=== PATIENT | female | born 1995 | race Caucasian/White ===

== ENCOUNTER 2018-06-02 20:41 | Emergency (ER) | payer OTHER ==
--- NOTE | 2018-06-03 01:02 | ER Document Report ---
ED General - General Chief Complaint: Leg Pain Stated Complaint: CALF PAIN Time Seen by Provider: 06/03/18 01:00 Primary Care Provider: HERBIE GRAHAM MD [ACTIVE STAFF] - Follow up in 3-5 days Notes: Patient is a 22-year-old female that is , approximately 32 weeks gravid that presents to the emergency department for chief complaint of right calf pain. Patient states that she started developing this pain yesterday, after a trip where she drove 5 hours, she was a passenger though, the pain as a sharp pain in the right calf, cramping in nature, she thought this was a "charley horse" but it continued and seem to be worse with walking and continued throughout today and was seen to be worse so she called her TECHNICAL SUPPORT CONSULTANT and they recommended her come to the ER to have an ultrasound to evaluate for possible DVT. Patient denies having any shortness of breath, chest pain, difficulty breathing, asymmetrical leg swelling, or erythema. She states she has had high blood pressure throughout , and had help syndrome with her prior , but things seem to be under control at this time, and is currently being seen by maternal medicine. She currently rates her pain at rest as a 4 out of 10 describes as a cramping type sensation in the back of her calf. She appears comfortable at this time. Denies prior history of DVT or PE. Past Medical History: Hypertension Past Surgical History: Social History: Denies tobacco, alcohol or drug use. Family History: Reviewed and noncontributory for presenting illness Allergies: Reviewed, see documented allergy list. REVIEW OF SYSTEMS: Other than noted above, the 12 point review of systems was reviewed with the patient and were negative, all pertinent findings are included in the HPI. PHYSICAL EXAMINATION: Vital signs reviewed, nursing noted reviewed. GENERAL: Well-appearing, well-nourished and in no acute distress. HEAD: Atraumatic, normocephalic. EYES: Eyes appear normal, sclera anicteric, conjunctiva are normal. ENT: Moist mucous membranes. NECK: Normal range of motion, supple without lymphadenopathy LUNGS: Breath sounds clear to auscultation bilaterally and equal. No wheezes rales or rhonchi. HEART: Heart rate mildly tachycardic, regular rhythm. EXTREMITIES: good range of motion, mild bilateral lower extremity edema, equal, no erythema noted to the either lower extremity, there is mild calf tenderness with palpation on the right, none on the left. There is no tenderness to palpation along the medial thighs bilaterally. The rest the patient's extremity exam is grossly unremarkable. NEUROLOGICAL: No focal neurological deficits. Moves all extremities spontaneously Motor and sensory grossly intact on exam. PSYCH: Normal mood, normal affect. SKIN: Warm, Dry, normal turgor, no rashes or lesions noted on exposed skin TRAVEL OUTSIDE OF THE [place] IN LAST 30 DAYS: No - Related Data Allergies/Adverse Reactions: metronidazole [From Flagyl] Allergy (Severe, Verified 10/21/15 22:55) Hives iodine Allergy (Mild, Verified 10/18/15 14:55) Past Medical History - Social History Smoking Status: Never Smoker Family History: Reviewed & Not Pertinent Psychiatric Medical History: Reports: Hx Attention Deficit Hyperactivity Disorder Physical Exam - Vital signs Vitals: Temp Pulse Resp BP Pulse Ox 98.4 F 106 H 18 153/73 H 97 06/02/18 20:48 06/02/18 20:48 06/02/18 20:48 06/02/18 20:48 06/02/18 20:48 Course - Re-evaluation Re-evalutation: Patient seen and examined, vital signs reviewed, patient appears well on exam, she had duplex imaging of the right lower extremity, that was negative for DVT, patient symptoms started a little over 24 hours ago, I would recommend repeating her duplex ultrasound in a week or 2 weeks from now, to confirm that it is negative, given that her symptoms only started about a day ago. Patient does have a follow-up appoint with her TECHNICAL SUPPORT CONSULTANT this upcoming Sunday, advised her to discuss this with her, to get this sorted to definitively rule out DVT, in the meantime I do not feel that the patient needs anticoagulation, as her clinical exam is not consistent with a DVT, and with a negative duplex today. Patient was agreeable with this plan of care, she is advised to take Tylenol if needed for pain, and to follow-up. - Vital Signs Vital signs: Temp Pulse Resp BP Pulse Ox 98.2 F 100 18 131/67 H 99 06/03/18 01:42 06/03/18 01:42 06/03/18 01:42 06/03/18 01:42 06/03/18 01:42 Discharge - Discharge Clinical Impression: Right leg pain Condition: Stable Disposition: HOME, SELF-CARE Instructions: Leg Cramps ([facility]) Additional Instructions: Please follow-up with your TECHNICAL SUPPORT CONSULTANT, I recommend you get a repeat ultrasound of your right leg 1 week from now, at a minimum, and no sooner, this can be done as an outpatient, please follow-up with your TECHNICAL SUPPORT CONSULTANT to get a prescription for this, if you develop symptoms such as redness or increased swelling on the right compared to the left, or develop chest pain or significant shortness of breath, do not hesitate to return to the emergency department sooner. Referrals: HERBIE GRAHAM MD [ACTIVE STAFF] - Follow up in 3-5 days
[2018-06-03 01:56] VITALS: BP 131/67
--- NOTE | 2018-06-03 09:30 | XCELERA REPORT ---
[address] [place] [facility] [id number] Lower Extremity Venous Evaluation Procedure: Color flow and duplex imaging of the veins of the right lower extremity as well as the left Common Femoral vein. Right Sided Venous Evaluation Normal vessel filling wall to wall, compression and augmentation as well as Colour flow down to the infrageniculate veins. Left Sided Venous Evaluation The left common femoral vein is fully compressible. Spontaneous and phasic flow is present in the left common femoral vein. Interpretation Summary No duplex evidence of DVT or obstruction in the right lower extremity nor in the left Common Femoral vein. Name: MAREN DONIS Age: 22 yrs Gender: Female : 1995 Patient Status: Preadmit Patient Location: ER Study Date: 06/02/2018 10:59 PM Reason For Study: r leg and calf pain Ordering Physician: RUSSELL MIX Performed By: Aldo Brar : RUSSELL MIX > Camilo Neil
== END 2018-06-03 02:02 | disposition home or self-care (01) ==
LOC: ER 20:41
DX: O26.93 Pregnancy related conditions, unspecified, third trimester (principal); M79.661 Pain in right lower leg; Z3A.32 32 weeks gestation of pregnancy
CPT/HCPCS: 93971; 99283